=== PATIENT | female | born 1970 | race Caucasian/White ===

== ENCOUNTER 2019-05-01 05:48 | Inpatient (IN) | payer OTHER ==
[~2019-05-01] VITALS: Ht 165.1 cm; Wt 77.1 kg
[2019-05-01] MEDS ORDERED: PROZAC20 MG (06:08)
[2019-05-01] MEDS ORDERED: BUSPIRONE HCL5 MG (06:08)
[2019-05-04] MEDS ORDERED: CIPRO500 MG PO (09:45)
[2019-05-04] MEDS ORDERED: FLAGYL500MG PO (09:46)
== END 2019-05-04 10:17 | disposition home or self-care (01) | DRG 445 ==
LOC: ER 05:48 → SEC-K 19:33 → SURG 19:33 → MEDJ 23:09 → SEC-K 23:18 → SURG 23:19
PROVIDERS: ADMIT Internal Medicine
PROC: CF1C1ZZ Planar Nuclear Medicine Imaging of Hepatobiliary System, All using Technetium 99m (Tc-99m) (ICD-10-PCS; principal; 2019-05-01)
PROC: BW40ZZZ Ultrasonography of Abdomen (ICD-10-PCS; 2019-05-01)
DX: K80.80 Other cholelithiasis without obstruction (principal); N39.0 Urinary tract infection, site not specified; F32.89 Other specified depressive episodes

== ENCOUNTER 2021-03-05 08:58 | Emergency (ER) | payer OTHER ==
[~2021-03-05] VITALS: Ht 165.1 cm; Wt 73.5 kg
[~2021-03-05 08:58] MED LIST: BUSPIRONE HCL5 MG; CIPRO500 MG PO; FLAGYL500MG PO; PROZAC20 MG
== END 2021-03-05 14:17 | disposition home or self-care (01) ==
LOC: ER 08:58
DX: K59.09 Other constipation (principal); R10.31 Right lower quadrant pain